=== PATIENT | male | born 1975 | race Caucasian/White ===

== ENCOUNTER 2017-03-06 16:43 | Emergency (ER) | payer BC ==
[2017-03-06 17:56] LABS: HEMOGLOBIN 15.8 gm/dl (14.0-17.5); RED BLOOD COUNT 5.42 M/UL (4.20-5.50)
[2017-03-06 18:18] LABS: BUN/CREATININE RATIO 16 (0-10)
== END 2017-03-06 21:40 | disposition home or self-care (01) ==
LOC: ER1 16:43
PROVIDERS: Nurse Practitioner Family
DX: S30.1XXA Contusion of abdominal wall, initial encounter (principal); R19.7 Diarrhea, unspecified; V86.59XA Driver of other special all-terrain or other off-road motor vehicle injured in nontraffic accident, initial encounter; Y93.89 Activity, other specified; Z79.899 Other long term (current) drug therapy
CPT/HCPCS: 36415; 80053; 81001; 83605; 85025; 87086; 99284; J7050; Q9962